=== PATIENT | female | born 1975 | race Caucasian/White ===

== ENCOUNTER → 2024-03-02 08:59 | Outpatient (CLI) | payer OTHER, SELFPAY ==
[2024-03-02 09:37] LABS: Add Manual Diff / Slide Review NO; Basophils Absolute Auto 0 /uL (0-100); Basophils Percent Auto 0.8 % (0-2); Eosinophils Absolute Auto 100 /uL (0-450); Eosinophils Percent Auto 1.6 % (2-4); Hemoglobin 13.9 g/dL (12.0-16.0); Lymphocytes Absolute Auto 2000 /uL (1100-4500); Lymphocytes Percent Auto 37.6 % (25-40); Mean Corpuscular HGB Conc 33.8 % (30-36); Mean Corpuscular Volume 94.5 fL (80-100); Monocytes Absolute Auto 500 /uL (0-900); Monocytes Percent Auto 8.6 % (3-14); Neutrophils Absolute Auto 2800 /uL (1500-7000); Neutrophils Percent Auto 51.4 % (50-75); Platelet Count 279 X10^3/uL (150-400); Red Blood Cell Count 4.33 X10^6/uL (4.0-5.2); Red Cell Distribution Width 13.6 % (11.6-14.8); White Blood Cell Count 5.4 X10^3/uL (4.5-11.0)
[2024-03-02 10:14] LABS: HEMOLYSIS < 15 (0-50); Iron 118 ug/dL (37-170)
[2024-03-02 10:16] LABS: Alanine Aminotransferase 16 IU/L (<35); Albumin 4.3 g/dL (3.5-5.0); Albumin Globulin Ratio 1.7 (1.0-2.8); Alkaline Phosphatase 57 U/L (38-126); Aspartate Aminotransferase 23 IU/L (14-36); BUN Creatinine Ratio 21.3 (6-22); Bilirubin Total 1.1 mg/dL (0.2-1.3); Blood Urea Nitrogen 13 mg/dL (7-17); Calcium 9.4 mg/dL (8.4-10.2); Carbon Dioxide 28 mmol/L (22-32); Chloride 104 mmol/L (98-107); Estimated Glomerular Filt Rate > 60 mL/min (>60); Globulin 2.5 g/dL (1.7-4.1); Glucose 100 mg/dL (70-100); HEMOLYSIS < 15 (0-50); Potassium 4.1 mmol/L (3.4-5.1); Sodium 136 mmol/L (137-145); Total Protein 6.8 g/dL (6.3-8.2)
[2024-03-02 10:27] LABS: Percent Iron Saturation 36 % (15-50); Total Iron Binding Capacity 326 ug/dL (265-497); Transferrin 296 mg/dL (206-381)
[2024-03-02 10:45] LABS: Thyroid Stimulating Hormone 2.17 uIU/mL (0.47-4.68)
[2024-03-02 10:51] LABS: Ferritin 21 ng/mL (6-137)
== END ==
PROVIDERS: PCP Student in an Organized Health Care Education/Training Program; Referring Provider Student in an Organized Health Care Education/Training Program; Visit Provider Student in an Organized Health Care Education/Training Program
DX: R53.83 Other fatigue (principal)
CPT/HCPCS: 36415; 80053; 82728; 83540; 83550; 84443; 85025

== ENCOUNTER → 2024-05-24 08:09 | Outpatient (CLI) | payer OTHER, SELFPAY ==
[2024-05-24 09:31] LABS: Ferritin 29 ng/mL (6-137)
[2024-05-25 13:10] LABS: Fecal Immunochemical Test Negative (Negative)
== END ==
LOC: LAB 08:10
PROVIDERS: PCP Student in an Organized Health Care Education/Training Program; Referring Provider Student in an Organized Health Care Education/Training Program; Visit Provider Student in an Organized Health Care Education/Training Program
DX: Z12.11 Encounter for screening for malignant neoplasm of colon (principal); R79.0 Abnormal level of blood mineral
CPT/HCPCS: 36415; 82274; 82728

== ENCOUNTER → 2024-07-19 08:17 | Outpatient (CLI) | payer OTHER, SELFPAY ==
[2024-07-19 09:11] LABS: Hematocrit 41.2 % (36-46); Hemoglobin 14.1 g/dL (12.0-16.0); Mean Corpuscular HGB Conc 34.2 % (30-36); Mean Corpuscular Hemoglobin 32.9 PG (26-34); Mean Corpuscular Volume 96.3 fL (80-100); Platelet Count 267 X10^3/uL (150-400); Red Blood Cell Count 4.28 X10^6/uL (4.0-5.2); Red Cell Distribution Width 13.2 % (11.6-14.8); White Blood Cell Count 5.6 X10^3/uL (4.5-11.0)
[2024-07-19 09:22] LABS: HEMOLYSIS < 15 (0-50); Iron 88 ug/dL (37-170)
[2024-07-19 09:34] LABS: Percent Iron Saturation 28 % (15-50); Total Iron Binding Capacity 311 ug/dL (265-497); Transferrin 260 mg/dL (206-381)
[2024-07-19 10:00] LABS: Ferritin 37 ng/mL (6-137)
[2024-07-19 16:20] LABS: Neutrophils Absolute Manual 2240 /uL (3000-5900); RBC Morphology Normal Morphology; Total Cells Counted 100
== END ==
LOC: LAB 08:18
PROVIDERS: PCP Student in an Organized Health Care Education/Training Program; Referring Provider Student in an Organized Health Care Education/Training Program; Visit Provider Student in an Organized Health Care Education/Training Program
DX: Z12.4 Encounter for screening for malignant neoplasm of cervix (principal); G43.909 Migraine, unspecified, not intractable, without status migrainosus; F32.A Depression, unspecified
CPT/HCPCS: 36415; 82728; 83540; 83550; 85025

== ENCOUNTER → 2024-09-20 10:40 | Outpatient (CLI) | payer OTHER, SELFPAY ==
[2024-09-20 11:54] LABS: Add Manual Diff / Slide Review NO; Hematocrit 42.3 % (36-46); Hemoglobin 14.4 g/dL (12.0-16.0); Lymphocytes Absolute Auto 2300 /uL (1100-4500); Mean Corpuscular HGB Conc 34.0 % (30-36); Mean Corpuscular Hemoglobin 33.1 PG (26-34); Mean Corpuscular Volume 97.4 fL (80-100); Platelet Count 281 X10^3/uL (150-400)
[2024-09-20 16:56] LABS: Ferritin 88 ng/mL (6-137)
[2024-09-20 19:25] LABS: HEMOLYSIS < 15 (0-50); Iron 195 ug/dL (37-170)
[2024-09-20 19:38] LABS: Percent Iron Saturation 69 % (15-50); Total Iron Binding Capacity 284 ug/dL (265-497); Transferrin 229 mg/dL (206-381)
== END ==
PROVIDERS: PCP Student in an Organized Health Care Education/Training Program; Referring Provider Student in an Organized Health Care Education/Training Program; Visit Provider Student in an Organized Health Care Education/Training Program
DX: G43.909 Migraine, unspecified, not intractable, without status migrainosus (principal); Z12.4 Encounter for screening for malignant neoplasm of cervix; E61.1 Iron deficiency; R79.0 Abnormal level of blood mineral; R53.83 Other fatigue
CPT/HCPCS: 36415; 82728; 83540; 83550; 85025

== ENCOUNTER → 2025-01-10 16:06 | Outpatient (CLI) | payer OTHER, SELFPAY | LOC: CAR 16:06 | PROVIDERS: PCP Student in an Organized Health Care Education/Training Program; Referring Provider Student in an Organized Health Care Education/Training Program; Visit Provider Student in an Organized Health Care Education/Training Program | DX: R00.2 Palpitations (principal) | CPT/HCPCS: 93246 ==